=== PATIENT | female | born 1975 | race Caucasian/White ===

== ENCOUNTER 2017-12-25 18:11 | Emergency (ER) | payer OTHER ==
[~2017-12-25] VITALS: Ht 147.3 cm; Wt 65.8 kg
[~2017-12-25 18:11] MED LIST: ALBUTEROL INHAL17 GM IH; ALPRAZOLAM; BACTRIM DS TAB1 EACH PO; CENTRUM SILVER1 EAC4 PO; CIPRO500 MG PO; GABAPENTIN 100100 MG PO; KEFLEX500 MG PO; LEVOTHYROXINE0.2 M1 PO; LORTABELXR PO; MINIPRESS2 MG PO; MOBIC7.5 MG PO; NEURONTIN 400400 M1 PO; PREDNISONE50 MG PO; PROZAC; PROZAC20 MG PO; ROBAXIN 750 MG750 M1 PO; SYNTHROID125 MCG; TRAMADOL 50 MG50 MG PO; TRAZODONE HCL100 MG PO; TRINATE TABLET1 TAB PO; VITAMIN B-1100 M1 PO; XANAX 0.5 MG0.5 MG PO; ZOLOFT50 MG PO; ZPAK PO
[2017-12-25] MEDS ORDERED: TIZANIDINE HCL 22 MG PO (19:06)
[2017-12-25 19:17] VITALS: BP 152/89
== END 2017-12-25 19:18 | disposition home or self-care (01) ==
LOC: M.ERS 18:11
DX: M54.12 Radiculopathy, cervical region (principal); F32.9 Major depressive disorder, single episode, unspecified; F41.9 Anxiety disorder, unspecified; E03.9 Hypothyroidism, unspecified; G89.29 Other chronic pain; M54.9 Dorsalgia, unspecified; F43.10 Post-traumatic stress disorder, unspecified; Z90.710 Acquired absence of both cervix and uterus; Z98.890 Other specified postprocedural states; Y04.0XXA Assault by unarmed brawl or fight, initial encounter; Y93.89 Activity, other specified; Y92.89 Other specified places as the place of occurrence of the external cause; Y99.8 Other external cause status